=== PATIENT | female | born 1990 | race Caucasian/White ===

== ENCOUNTER → 2016-06-05 | Outpatient (CLI) | payer OTHER ==
[2016-06-05 20:49] LABS: MEAN CORPUSCULAR HGB CONC 33.3 g/dl (32.0-36.5); MEAN CORPUSCULAR VOLUME 96.3 fl (80.0-96.0); RED CELL DISTRIBUTION WIDTH 12.6 % (11.5-14.5); WHITE BLOOD COUNT 9.3 K/mm3 (4.0-10.0)
== END ==
LOC: M WUC 15:22
PROVIDERS: ATTEND Obstetrics & Gynecology
DX: Z36 Encounter for antenatal screening of mother (principal); Z3A.00 Weeks of gestation of pregnancy not specified

== ENCOUNTER → 2016-07-18 | Outpatient (REF) | payer OTHER | LOC: M LAB REF 16:48 | PROVIDERS: ATTEND Advanced Practice Midwife | DX: Z36 Encounter for antenatal screening of mother (principal); Z3A.00 Weeks of gestation of pregnancy not specified ==

== ENCOUNTER 2016-08-11 13:06 | Inpatient (IN) | payer OTHER ==
[~2016-08-11] VITALS: Ht 170.2 cm; Wt 102.0 kg
[2016-08-11] VITALS (8 sets, daily range): BP systolic 110–127; BP diastolic 58–78
[~2016-08-11 13:06] MED LIST: PRENTAB55 PO
[2016-08-11] MEDS ORDERED: ACET50TAOT PO (13:14)
[2016-08-11] MEDS ORDERED: LACTATED RINGER'S 1000 ML IV ONE (14:00)
[2016-08-11 14:30] LABS: MEAN CORPUSCULAR HEMOGLOBIN 32.6 pg (27.0-33.0); MEAN CORPUSCULAR HGB CONC 33.9 g/dl (32.0-36.5); RED CELL DISTRIBUTION WIDTH 13.5 % (11.5-14.5); WHITE BLOOD COUNT 11.4 K/mm3 (4.0-10.0)
[2016-08-11] MEDS ORDERED: LR 1,000 ML IV SCH (15:00)
--- NOTE | 2016-08-12 13:00 | HPE ---
DATE OF ADMISSION: 08/11/2016 Sola is a 25-year-old female, 2, para 1-0-0-1, with a history of prior section. Estimated date of confinement (EDC) of 08/16/2016, estimated gestational age (EGA) 39-2/7 weeks' gestation, who presented to the office with complaints of contractions every 4-5 minutes. She had NST in the office, which confirmed contractions, and her cervix at this point was 2 cm dilated, 60%, -2. She is given the option, and she wanted to have a trial of labor after section. The risk and benefit of trial of labor after (TOLAC) discussed with the patient in great detail all throughout her care. The patient did schedule for repeat section at 40 weeks if spontaneous labor did not occur. After extensive counseling in the office, the patient was then sent to labor and delivery for admission. Upon evaluation, no bleeding, no leakage of fluid. Her record reviewed, essentially unremarkable. LABORATORY: Rubella immune, hepatitis negative, HIV negative, gonorrhea culture (GC) and chlamydia negative, 1-hour sugar testing was within normal limits. Her group B streptococcus (GBS) is negative. MEDICAL HISTORY: Denies. PAST SURGICAL HISTORY: section times one, removal of a cyst from a right scapula at 11 years of age. SOCIAL HISTORY: She denies any alcohol, drug, or cigarette smoking. FAMILY HISTORY: Is significant for skin cancer, lung cancer in her paternal side. MEDICATION: - vitamins ALLERGIES: No known drug allergies. PHYSICAL EXAMINATION ON ADMISSION: HEENT: Grossly within normal limits. Abdomen: Soft, nontender, nondistended. Extremities: No clubbing, cyanosis, or edema. Vaginal examination: 2 cm dilated, 60%, -2, fetus in a vertex position, and the cervix posterior, category 1 tracing with contractions every 3-4 minutes. ASSESSMENT: 1. Intrauterine at 39-2/7 weeks' gestation in prodromal labor. 2. History of prior section for a trial of labor after . 3. Group B streptococcus negative. PLAN: The patient admitted to labor and delivery. Routine laboratories sent. Intravenous (IV) fluid hydration ordered. Pain management discussed. The patient opted for an epidural. She was again counseled on the risk and benefit of a trial of labor after section. The risks of section also discussed, as well as distress. The patient and aware that we will wait for spontaneous labor. If spontaneous labor progression does not occur, she will have the option at that point to be discharged home or augment labor with Pitocin and artificial rupture of membranes. RIVERA
== END 2016-08-11 21:30 | disposition home or self-care (01) | DRG 780 ==
LOC: M LDI 13:06
PROVIDERS: ADMIT Obstetrics & Gynecology; ATTEND Obstetrics & Gynecology
DX: O47.1 False labor at or after 37 completed weeks of gestation (principal); Z3A.39 39 weeks gestation of pregnancy

== ENCOUNTER 2016-08-12 10:07 | Inpatient (IN) | payer OTHER ==
[~2016-08-12] VITALS: Ht 170.2 cm; Wt 106.0 kg
[2016-08-12] VITALS (22 sets, daily range): BP systolic 85–136; BP diastolic 46–90
[~2016-08-12 10:07] MED LIST changes: +ACET50TAOT PO
[2016-08-12] MEDS ORDERED: LR 1,000 ML IV SCH (10:44)
[2016-08-12] MEDS ORDERED: LACTATED RINGER'S 1000 ML IV STA (10:44)
[2016-08-12] MEDS ORDERED: BICITRA 30ML SOLN UDC PO ONE (10:45)
[2016-08-12 11:07] LABS: MEAN CORPUSCULAR HGB CONC 34.7 g/dl (32.0-36.5); MEAN CORPUSCULAR VOLUME 95.1 fl (80.0-96.0); RED CELL DISTRIBUTION WIDTH 13.7 % (11.5-14.5); WHITE BLOOD COUNT 9.2 K/mm3 (4.0-10.0)
[2016-08-12] MEDS ORDERED: FENTANYL 2MCG/ML ROPIVACAINE 0.2% IN 0.9% NACL 200ML IVBAG As Ordered ONE (12:47)
--- NOTE | 2016-08-12 13:00 | HPE ---
DATE OF ADMISSION: 08/11/2016 Sola is a 25-year-old female, 2, para 1-0-0-1, with a history of prior section. Estimated date of confinement (EDC) of 08/16/2016, estimated gestational age (EGA) 39-2/7 weeks' gestation, who presented to the office with complaints of contractions every 4-5 minutes. She had adenosine the office, which confirmed contractions, and her cervix at this point was 2 cm dilated, 60%, -2. She is given the option, and she wanted to have a trial of labor after section. The risk and benefit of trial of labor after (TOLAC) discussed with the patient in great detail all throughout her care. The patient did schedule for repeat section at 40 weeks if spontaneous labor did not occur. After extensive counseling in the office, the patient was then sent to labor and delivery for admission. Upon evaluation, no bleeding, no leakage of fluid. Her record reviewed, essentially unremarkable. LABORATORY: Rubella immune, hepatitis negative, HIV negative, gonorrhea culture (GC) and chlamydia negative, 1-hour sugar testing was within normal limits. Her group B streptococcus (GBS) is negative. MEDICAL HISTORY: Denies. PAST SURGICAL HISTORY: section times one, removal of a cyst from a right scapula at 11 years of age. SOCIAL HISTORY: She denies any alcohol, drug, or cigarette smoking. FAMILY HISTORY: Is significant for skin cancer, lung cancer in her paternal side. MEDICATION: - vitamins ALLERGIES: No known drug allergies. PHYSICAL EXAMINATION ON ADMISSION: HEENT: Grossly within normal limits. Abdomen: Soft, nontender, nondistended. Extremities: No clubbing, cyanosis, or edema. Vaginal examination: 2 cm dilated, 60%, -2, fetus in a vertex position, and the cervix posterior, category 1 tracing with contractions every 3-4 minutes. ASSESSMENT: 1. Intrauterine at 39-2/7 weeks' gestation in prodromal labor. 2. History of prior section for a trial of labor after . 3. Group B streptococcus negative. PLAN: The patient admitted to labor and delivery. Routine laboratories sent. Intravenous (IV) fluid hydration ordered. Pain management discussed. The patient opted for an epidural. She was again counseled on the risk and benefit of a trial of labor after section. The risks of section also discussed, as well as distress. The patient and aware that we will wait for spontaneous labor. If spontaneous labor progression does not occur, she will have the option at that point to be discharged home or augment labor with Pitocin and artificial rupture of membranes.
[2016-08-12] MEDS ORDERED: EPIDURAL/PCA KEYS XX PRN (13:45)
[2016-08-12] MEDS ORDERED: ePHEDrine SULFATE 25 MG/5 ML(5MG/ML) SYRINGE IV PRN (13:45)
[2016-08-12] MEDS ORDERED: REFRIGERATOR IV KEYS XX PRN (13:45)
[2016-08-12] MEDS ORDERED: ONDANSETRON 4MG/2ML VIAL (J2405) IV PRN (13:45)
[2016-08-12] MEDS ORDERED: diphenhydrAMINE INJ 50MG/ML VIAL (J1200) IV PRN (13:45)
[2016-08-12] MEDS ORDERED: FENTANYL/ROPIVACAINE/NACL BAG 200 ML EPIDURAL SCH (13:45)
[2016-08-12] MEDS ORDERED: LACTATED RINGER'S 1000 ML IV PRN (13:45)
[2016-08-12] MEDS ORDERED: NALOXONE INJ 0.4 MG/1 ML VIAL (J2310) IV PRN (13:45)
[2016-08-12] MEDS ORDERED: EPIDURAL COMMENT XX SCH (13:45)
[2016-08-12] MEDS ORDERED: OXYTOCIN 30 UNITS IN 0.9% NaCl 500ML IV BAG (J2590) As Ordered ONE (16:53)
[2016-08-12] MEDS ORDERED: OXYTOCIN DRIP 30 UNITS in APPROPRIATE DILUENT 1 EA IV SCH (17:26)
[2016-08-12 17:28] LABS: CORD GAS ABE A -4.6; CORD GAS HCO3 A 23.8 MEQ/L; CORD GAS PCO2 A 56.6 mmHg; CORD GAS PH A 7.241 UNITS; CORD GAS SBC A 19.3 MEQ/L; CORD GAS TCO2 A 25.5 MEQ/L
[2016-08-12 17:29] LABS: CORD GAS PO2 A 20.2 mmHg
[2016-08-12 17:30] LABS: CORD GAS ABE V -5.8; CORD GAS O2 SAT V 43.7 %; CORD GAS PCO2 V 40.5 mmHg; CORD GAS PH V 7.312 UNITS; CORD GAS PO2 V 20.3 mmHg; CORD GAS SBC V 18.5 MEQ/L; CORD GAS TCO2 V 21.3 MEQ/L
[2016-08-12] MEDS ORDERED: METHYLERGONOVINE MALEATE 0.2 MG TAB PO PRN (17:30)
[2016-08-12] MEDS ORDERED: DOCUSATE SODIUM 100 MG CAP PO PRN (17:30)
[2016-08-12] MEDS ORDERED: DIBUCAINE 1% OINTMENT 30GM TOP PRN (17:30)
[2016-08-12] MEDS ORDERED: RHOGAM 300 MCG (1500 IU) INJ (J2790) IM SCH (17:30)
[2016-08-12] MEDS ORDERED: ANUSOL HC CREAM 30GM TOP PRN (17:30)
[2016-08-12] MEDS ORDERED: MEASLES,MUMPS,RUBELLA VACCINE INJ (MMR-II) (90707) SC SCH (17:30)
[2016-08-12] MEDS: IBUPROFEN 800 MG TAB PO PRN (20:47)
[2016-08-13] MEDS: ACETAMINOPHEN 500 MG TAB PO PRN ×4 (00:46→19:53)
[2016-08-13 05:58] VITALS: BP 138/76
[2016-08-13] MEDS: IBUPROFEN 800 MG TAB PO PRN ×2 (06:40→15:59)
[2016-08-13 06:45] LABS: MEAN CORPUSCULAR HGB CONC 33.1 g/dl (32.0-36.5); MEAN CORPUSCULAR VOLUME 99.7 fl (80.0-96.0); RED CELL DISTRIBUTION WIDTH 13.6 % (11.5-14.5); WHITE BLOOD COUNT 11.8 K/mm3 (4.0-10.0)
--- NOTE | 2016-08-13 09:10 | HPE ---
DATE OF ADMISSION: 08/12/2016 Sola is a 25-year-old female, 2, para 1-0-0-1, with a history of prior section, estimated date of confinement (EDC) 08/16/2016, estimated gestational age (EGA) 39-3/7 weeks gestation, who presented to labor and delivery with complaints of contractions every 3-4 minutes. Patient was seen and evaluated in labor and delivery yesterday with similar complaint and was discharged home after having no cervical changes. Upon evaluation today, she was found to be 3-4 cm dilated, 70% effaced with the fetus at -2 station. At this point, a decision was made for admission. Patient desires to proceed with a trial of labor after section. The risk and benefit again discussed with the patient in detail as well as the possible risk for repeat section. lab reviewed. Blood type is A+. Rubella immune. Hepatitis negative. HIV negative. GC, chlamydia negative. 1-hour sugar testing was within normal limits. GBS is negative. PAST MEDICAL HISTORY/PAST SURGICAL HISTORY: section times one and removal of a cyst in right scapula. SOCIAL HISTORY: She is . Denies any alcohol, drug or cigarette smoking. REVIEW OF SYSTEM: Unremarkable. MEDICATION: - vitamins ALLERGIES: NO KNOWN DRUG ALLERGY. PHYSICAL EXAMINATION: HEENT: Grossly within normal limits. Abdomen: Soft, nontender, nondistended. Extremities: No clubbing, cyanosis or edema. Vaginal exam: 4 cm, 70%, -2, fetus in vertex position. Tracing reviewed. Category 1 tracing. ASSESSMENT: 1. Intrauterine at 39-3/7 weeks gestation in labor. 2. History of prior section for trial of labor after section. PLAN: Admit to labor and delivery. Routine labs sent. Pain management discussed. Patient opt for an epidural. Again, patient counseled extensively on the risk and benefit of section versus trial of labor after (TOLAC). Both patient and her fully understand and will proceed with a trial of labor.
[2016-08-13] MEDS: PRENATAL VITAMIN TAB PO SCH (09:25)
--- NOTE | 2016-08-13 12:53 | DN ---
DATE OF DELIVERY: 08/12/2016 Sola is a 25-year-old female, 2, para 1-0-0-1, with a history of prior section. She was admitted at 39-3/7 weeks gestation in labor. She had spontaneous rupture of membrane at 6-7 cm dilated after an epidural. She then progressed to fully dilated, delivered a live female infant, 8/9, weight 8 pounds 3 ounces. Placenta delivered spontaneously intact. Three-vessel cord. A first-degree midline perineal laceration was noted, which was repaired using #2-0 chromic. Estimated blood loss 300 mL. Both mother and baby in stable condition.
[2016-08-13 17:38] VITALS: BP 114/70
[2016-08-14] MEDS: IBUPROFEN 800 MG TAB PO PRN ×2 (00:44→10:31)
[2016-08-14] MEDS: ACETAMINOPHEN 500 MG TAB PO PRN (05:28)
[2016-08-14 05:37] VITALS: BP 113/61
[2016-08-14] MEDS: PRENATAL VITAMIN TAB PO SCH (08:13)
[2016-08-14] MEDS ORDERED: IBUP-1114 PO (08:48)
== END 2016-08-14 11:10 | disposition home or self-care (01) | DRG 775 ==
LOC: M LDO 10:07 → M LDI 10:41 → M OBS 19:21
PROVIDERS: ADMIT Obstetrics & Gynecology; ATTEND Obstetrics & Gynecology
PROC: 10E0XZZ Delivery of Products of Conception, External Approach (ICD-10-PCS; principal; 2016-08-12)
PROC: 0HQ9XZZ Repair Perineum Skin, External Approach (ICD-10-PCS; 2016-08-12)
DX: O34.211 Maternal care for low transverse scar from previous cesarean delivery (principal); Z37.0 Single live birth; Z3A.39 39 weeks gestation of pregnancy; O70.0 First degree perineal laceration during delivery

== ENCOUNTER → 2020-09-27 | Outpatient (CLI) | payer OTHER ==
[~2020-09-27] MED LIST changes: +ACET500T15 PO; -ACET50TAOT PO; +IBUP-1114 PO
--- NOTE | 2020-09-27 16:10 | REP ---
INDICATION: LEFT ANKLE PAIN COMPARISON: None. TECHNIQUE: There are four views. FINDINGS: There is no fracture or dislocation. Mineralization and joint spaces are normal. There are no calcifications or foreign bodies. IMPRESSION: Negative left ankle. <Electronically signed by Joseph Nunn > 09/27/20 [id number]
== END ==
LOC: M WUC 15:56
PROVIDERS: ATTEND Physician Assistant
DX: M25.572 Pain in left ankle and joints of left foot (principal)

== ENCOUNTER → 2023-02-10 | Outpatient (CLI) | payer OTHER ==
[2023-02-10 13:46] LABS: HIV 1&2 SCREEN NEGATIVE (NEGATIVE)
== END ==
LOC: M LAB 11:11
PROVIDERS: ATTEND Obstetrics & Gynecology
DX: Z20.2 Contact with and (suspected) exposure to infections with a predominantly sexual mode of transmission (principal)

== ENCOUNTER → 2024-10-02 | Outpatient (CLI) | payer OTHER | LOC: M RAD 14:59 | PROVIDERS: ATTEND Physician Assistant Medical | DX: M25.571 Pain in right ankle and joints of right foot (principal) ==